=== PATIENT | male | born 1995 | race Two or more races ===

== ENCOUNTER 2018-11-11 23:07 | Emergency (ER) | payer SELFPAY ==
[~2018-11-11] VITALS: Ht 170.2 cm; Wt 63.5 kg
[2018-11-11 23:58] LABS: Basophils # (auto) 0 uL; Basophils % (auto) 0.1 % (0.0-2.0); Eosinophils # (auto) 0 uL; Eosinophils % (auto) 0.4 % (0.0-7.0); Hematocrit 48.1 % (41.0-53.0); Hemoglobin 15.9 g/dL (13.5-17.5); Lymphocytes # (auto) 1.5 uL; Lymphocytes % (auto) 12.5 % (10.0-50.0); Mean Corpuscular Hemoglobin 28.6 pg (28.0-32.0); Mean Corpuscular Hgb Conc. 33.1 g/dL (32.0-36.0); Mean Corpuscular Volume 86.4 fL (80.0-100.0); Monocytes # (auto) 0.6 uL; Monocytes % (auto) 5.4 % (0.0-12.0); Neutrophils # (auto) 9.8 uL; Neutrophils % (auto) 81.6 % (37.0-80.0); Platelet Count (auto) 235 10^3/uL (140-450); Red Blood Cells 5.56 10^6/uL (4.5-5.90); Red Cell Distribution Width 13.2 % (11.8-14.3)
[2018-11-12 00:08] LABS: Alcohol, Urine < 3.0 mg/dL (0-5); Amphetamine Screen, Urine NEGATIVE (NEGATIVE); Barbiturate Scree,Urine NEGATIVE (NEGATIVE); Benzodiazephine Screen, Urine NEGATIVE (NEGATIVE); Cannabinoid Screen, Urine NEGATIVE (NEGATIVE); Cocaine Screen, Urine NEGATIVE (NEGATIVE); Opiate Scree,Urine NEGATIVE (NEGATIVE); Phencyclidine Screen, Urine NEGATIVE (NEGATIVE)
[2018-11-12] MEDS ORDERED: LORazepam 2MG/ML-1ML VIAL IM ONE (00:30)
[2018-11-12 04:59] VITALS: BP 99/51
== END 2018-11-12 21:59 | disposition home or self-care (01) ==
LOC: EDBD 23:07 → ER 23:12
DX: F41.9 Anxiety disorder, unspecified (principal)
CPT/HCPCS: 36415; 80307; 85025; 96372; 99283; J2060

== ENCOUNTER 2019-10-16 20:26 | Emergency (ER) | payer MEDICAID ==
[~2019-10-16] VITALS: Ht 177.8 cm; Wt 77.1 kg
[2019-10-16 20:37] VITALS: BP 130/80
== END 2019-10-17 00:18 | disposition home or self-care (01) ==
LOC: EDBD 20:26 → ER 20:29
DX: S43.401A Unspecified sprain of right shoulder joint, initial encounter (principal); S09.90XA Unspecified injury of head, initial encounter; Y04.0XXA Assault by unarmed brawl or fight, initial encounter; Y93.89 Activity, other specified; Y99.8 Other external cause status; Y92.89 Other specified places as the place of occurrence of the external cause
CPT/HCPCS: 70450; 73030

== ENCOUNTER 2020-04-25 02:28 | Emergency (ER) | payer SELFPAY ==
[~2020-04-25] VITALS: Ht 170.2 cm; Wt 60.3 kg
[2020-04-25] MEDS ORDERED: ONDANSETRON ODT 4 MG TAB PO ONE (04:30)
[2020-04-25 04:41] VITALS: BP 116/87
[2020-04-25 04:52] LABS: Urine Bacteria NONE SEEN /hpf (None Seen); Urine Blood Negative /uL (Negative); Urine Mucus FEW (None Seen); Urine Specific Gravity 1.008 (1.001-1.035); Urine WBC <1 /hpf (0 - 3)
[2020-04-25 05:06] LABS: Amphetamine Screen, Urine NEGATIVE (NEGATIVE); Barbiturate Scree,Urine NEGATIVE (NEGATIVE); Benzodiazephine Screen, Urine NEGATIVE (NEGATIVE); Cannabinoid Screen, Urine NEGATIVE (NEGATIVE); Cocaine Screen, Urine NEGATIVE (NEGATIVE); Opiate Scree,Urine NEGATIVE (NEGATIVE); Phencyclidine Screen, Urine NEGATIVE (NEGATIVE)
[2020-04-25 05:17] LABS: Alcohol, Urine < 3.0 mg/dL (0-10)
== END 2020-04-25 05:47 | disposition home or self-care (01) ==
LOC: ER 02:29
DX: K21.9 Gastro-esophageal reflux disease without esophagitis (principal)
CPT/HCPCS: 80307; 81001; 99283; Q0162

== ENCOUNTER → 2020-05-16 | Emergency (ER) | payer MEDICAID ==
[~2020-05-16] VITALS: Ht 170.2 cm; Wt 60.3 kg
[2020-05-16 19:55] VITALS: BP 102/70
== END | disposition home or self-care (01) ==
LOC: ER 18:37
DX: S33.5XXA Sprain of ligaments of lumbar spine, initial encounter (principal); M79.601 Pain in right arm; R07.81 Pleurodynia; M79.604 Pain in right leg; Y04.0XXA Assault by unarmed brawl or fight, initial encounter; Y93.89 Activity, other specified; Y92.89 Other specified places as the place of occurrence of the external cause; Y99.8 Other external cause status
CPT/HCPCS: 72100; 73120; 73501

== ENCOUNTER 2020-06-04 22:34 | Emergency (ER) | payer MEDICAID ==
[~2020-06-04] VITALS: Ht 177.8 cm; Wt 68.0 kg
[2020-06-04 22:59] VITALS: BP 116/74
== END 2020-06-05 01:58 | disposition left against medical advice (07) ==
LOC: ER 22:36
DX: R10.9 Unspecified abdominal pain (principal); Z53.21 Procedure and treatment not carried out due to patient leaving prior to being seen by health care provider
CPT/HCPCS: 74176